=== PATIENT | male | born 1985 | race Caucasian/White ===

== ENCOUNTER 2016-07-23 22:37 | Emergency (ER) | payer BC, MEDICAID ==
--- NOTE | 2016-07-23 22:40 | EDM.PDOC ---
ED HPI GENERAL MEDICAL PROBLEM - General Chief Complaint: Upper Extremity Injury/Pain Stated Complaint: Hand pain Time Seen by Provider: 07/23/16 22:40 Source of Information: Reports: Patient, Old Records ([facility] EMR. No paper hospital chart available.), Significant Other, Other History Limitations: Reports: No Limitations - History of Present Illness INITIAL COMMENTS - FREE TEXT/NARRATIVE: The patient was brought to the emergency room via private automobile for evaluation of 8/10 left-sided hand pain secondary to hitting a dresser at home out of anger about 3 days ago. He has used excessive amounts of ibuprofen since that time, including as much as 800 mg of ibuprofen on a every 4 hours basis with last dose at 18:00 hours this evening. No recent history of abdominal pain , heartburn, nausea, diarrhea, melena, gross hematochezia, or any food intolerance, including fatty foods, etc.. The patient also denies any recent fever, cough, wheezing, dyspnea, etc.. He has not injured this hand in the past. The patient is right handed. He denies any paresthesias, neurological deficits, or other complaints or injuries Onset: Sudden Onset Date: 07/20/16 Onset Time: 12:00 Duration: Constant Location: Reports: Upper Extremity, Left. Denies: Head, Face, Neck, Chest, Abdomen, Back, Pelvis, Radiates to Quality: Reports: Same as Previous Episode, Sharp Severity: Moderate Improves with: Reports: Rest Worsens with: Reports: Movement Context: Reports: Trauma (As above) Associated Symptoms: Denies: Confusion, Chest Pain, Cough, Diaphoresis, Fever/ Chills, Nausea/Vomiting, Shortness of Breath, Weakness Treatments HEAD OF BIOLOGY: Reports: Cold Therapy, NSAIDS Left Hand Pain Score (Numeric/FACES): 8 - Related Data Allergies Allergy/AdvReac Type Severity Reaction Status Date / Time No Known Allergies Allergy Verified 02/15/15 14:19 Past Medical History HEENT History: Reports: Impaired Vision, Other (See Below). Denies: Allergic Rhinitis, Glaucoma, Hard of Hearing, Macular Degeneration, Retinal Detachment Other HEENT History: Glasses Cardiovascular History: Reports: None. Denies: Arrhythmia, Blood Clots/VTE/DVT , Heart Murmur, High Cholesterol, Hypertension, Syncope Respiratory History: Reports: Asthma. Denies: COPD, PE Gastrointestinal History: Reports: None. Denies: Chronic Constipation, Chronic Diarrhea, Gastritis, GERD, Hepatitis, Pancreatitis, PUD Genitourinary History: Reports: None. Denies: Chronic Renal Insuffiency, Renal Calculus, STD, UTI, Recurrent Musculoskeletal History: Reports: Fracture, Other (See Below). Denies: Back Pain, Chronic, Gout, Neck Pain, Chronic, Osteoarthritis, RA, SLE Other Musculoskeletal History: Right wrist fracture at age 18 Neurological History: Reports: Migraines. Denies: Concussion, Head Trauma, MS, Neuropathy, Peripheral, Seizure, Vertigo Psychiatric History: Reports: Addiction, Other (See Below). Denies: Anxiety, Depression Other Psychiatric History: Tobacco and illicit drug use Endocrine/Metabolic History: Reports: None. Denies: Diabetes, Type I, Diabetes , Type II, Hypothyroidism, IDDM Hematologic History: Reports: None. Denies: Anemia, Blood Transfusion(s), Iron Deficiency Immunologic History: Reports: None. Denies: AIDS, HIV, SLE Oncologic (Cancer) History: Reports: None. Denies: Hodgkin's Lymphoma, Leukemia , Lymphoma, Malignant Melanoma, Non-Hodgkin's Lymphoma, Squamous Cell Carcinoma Dermatologic History: Reports: None. Denies: Eczema, Psoriasis - Infectious Disease History Infectious Disease History: Reports: Chicken Pox, Mononucleosis (Early 20s). Denies: C-Difficile, Measles, Meningitis, MRSA, Mumps, Pertussis (Whooping Cough ), Rheumatic Fever, Rubella, Scarlet Fever, Shingles, TB - Past Surgical History Head Surgeries/Procedures: Reports: None HEENT Surgical History: Reports: Adenoidectomy, Oral Surgery, Tonsillectomy, Other (See Below). Denies: Eye Surgery, Laser Surgery, LASIK, Myringotomy w Tube(s), Naso-Sinus Surgery Other HEENT Surgeries/Procedures: Tonsillectomy and adenoidectomy as a child, multiple teeth extractions Cardiovascular Surgical History: Reports: None. Denies: Varicose, Vascular Surgery Respiratory Surgical History: Reports: None. Denies: Lung Biopsies, Thoracentesis GI Surgical History: Reports: None. Denies: Appendectomy, Cholecystectomy, Colonoscopy, EGD, Hernia, Abdominal, Hernia, Inguinal, Hernia Repair/Other Male Surgical History: Reports: Circumcision, Other (See Below). Denies: Vasectomy Other Male Surgeries/Procedures: Circumcision as an Endocrine Surgical History: Reports: None. Denies: Thyroid Biopsy Neurological Surgical History: Reports: None. Denies: C-Spine, Discectomy, Laminectomy, Lumbar Spine, Spinal Fusion, Vertebroplasty Musculoskeletal Surgical History: Reports: Arthroscopic Knee, Arthroscopic Procedure, ORIF, Other (See Below) Other Musculoskeletal Surgeries/Procedures:: Right knee ACL repair at age 16, ORIF and bone graft of right wrist at about age 18 Oncologic Surgical History: Reports: None Dermatological Surgical History: Reports: None - Past Imaging History Past Imaging History: Reports: None Social & Family History - Tobacco Use Smoking Status *Q: Current Every Day Smoker Tobacco Use Within Last Twelve Months: Cigarettes Years of Tobacco use: 16 (Started smoking and using tobacco at age 14) Packs/Tins Daily: 0.5 (Maximum use of 3 packs per day also chewing tobacco of one half can per day previously with current use of one half can per week) Used Tobacco, but Quit: No Smoking Cessation Information Provided To Patient: Yes Second Hand Smoke Exposure: Yes Source of Second Hand Smoke Exposure: Significant other Second Hand Smoke Education Provided: Yes - Caffeine Use Caffeine Use: Reports: Energy Drinks (1 can per week), Soda (12 Sodas per day). 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 ED EXAM, GENERAL - Physical Exam Exam: See Below Exam Limited By: No Limitations General Appearance: Alert, WD/WN, No Apparent Distress, Anxious (Mild) Head: Atraumatic, Normocephalic. No: Facial Swelling, Facial Tenderness, Sinus Tenderness Neck: Normal Inspection, Supple, Non-Tender, Full Range of Motion. No: Lymphadenopathy (L), Lymphadenopathy (R), Thyromegaly Respiratory/Chest: No Respiratory Distress, Lungs Clear, Normal Breath Sounds, No Accessory Muscle Use, Chest Non-Tender. No: Pleural Rub, Retractions Cardiovascular: Normal Peripheral Pulses, Regular Rate, Rhythm, No Edema, No Gallop, No JVD, No Murmur, No Rub. No: Gallop/S3, Gallop/S4, Friction Rub Peripheral Pulses: 4+: Radial (L), Radial (R) GI/Abdominal: Normal Bowel Sounds, Soft, Non-Tender, No Organomegaly, No Distention, No Abnormal Bruit, No Mass, Pelvis Stable. No: Guarding (Male) Exam: Deferred Rectal (Males) Exam: Deferred Back Exam: Normal Inspection, Full Range of Motion. No: CVA Tenderness (L), CVA Tenderness (R), Muscle Spasm Extremities: Normal Range of Motion, No Pedal Edema, Normal Capillary Refill, Other (Mild localized palpation pain without significant swelling, deformity, etc. over the knuckles of his left hand). No: Joint Swelling, Arm Pain, Limited Range of Motion, Redness Neurological: Alert, Oriented, CN II-XII Intact, Normal Cognition, Normal Gait, No Motor/Sensory Deficits Psychiatric: Anxious (Mild), Depressed Mood (Mild) Skin Exam: Warm, Dry, Intact, Normal Color, No Rash, Tattoo(s). No: Diaphoretic , Ecchymosis, Wound/Incision Lymphatic: No Adenopathy Course - Vital Signs Last Recorded V/S: Last Vital Signs Temp 36.8 C 07/23/16 22:43 Pulse 126 H 07/23/16 22:43 Resp 18 07/23/16 22:43 BP 120/67 07/23/16 22:43 Pulse Ox 99 07/23/16 22:43 Vital Signs - 24 hr 07/23/16 22:43 Temperature [ 36.8 C Temporal] Pulse, 126 H Peripheral [ Pulse Oximetry] Respiratory 18 Rate Blood Pressure 120/67 [Right Upper Arm] O2 Sat by Pulse 99 Oximetry - Orders/Labs/Meds Orders: Active Orders 24 hr Category Date Time Status Hand Comp Min 3V Lt [CR] Stat Exams 07/23/16 22:41 Taken Obtain Past Medical Record [OM.PC] Routine Oth 07/23/16 22:41 Active Labs: None Meds: None - Radiology Interpretation Free Text/Narrative:: X-rays of the left hand, 3 views, shows no evidence of fracture or dislocation Departure - Departure Time of Disposition: 23:25 Disposition: Home, Self-Care 01 Condition: good Clinical Impression: Illicit drug use, continuous, Caries, Tobacco abuse counseling Contusion Qualifiers: Encounter type: initial encounter Contusion area: hand Laterality: left Qualified Code(s): S60.222A - Contusion of left hand, initial encounter Asthma Qualifiers: Asthma severity: mild intermittent Asthma complication type: uncomplicated Qualified Code(s): J45.20 - Mild intermittent asthma, uncomplicated - Discharge Information Instructions: Contusion, [id number] Forms: ED Department Discharge Additional Instructions: 1. Follow up with your regular provider in 10-14 days as needed, if symptoms persist. 2. Tylenol 650 mg by mouth every 4 hours and/or OTC ibuprofen 2-3 tabs by mouth every 6 hours with food as directed./needed. 3. BenGay or equivalent, heating pad, and/or ice packs as directed. 4. Stop all tobacco use ADAMA as directed/per provided information and consider contacting [facility]uit [facility], etc.. 5. Congratulations about trying to stop marijuana use for this to be discontinued on a long-term basis as discussed 6. Stop all energy drink use 7. Follow up with your dentist ADAMA as discussed 8. NEVER EXCEED THE RECOMMENDED DOSE OF MEDICINES, INCLUDING OTC MEDICINES, ETC. - Problem List & Annotations (1) Contusion SNOMED Code(s): 188984918 Code(s): T14.8 - OTHER INJURY OF UNSPECIFIED BODY REGION Status: Acute Priority: High Current Visit: Yes Onset Date: 07/20/16 Annotation/Comment: : Mild to moderate contusion of his left hand. Symptomatic relief as per discharge instructions Qualifiers: Encounter type: initial encounter Contusion area: hand Laterality: left Qualified Code(s): S60.222A - Contusion of left hand, initial encounter (2) Asthma SNOMED Code(s): 444434373 Code(s): J45.909 - UNSPECIFIED ASTHMA, UNCOMPLICATED Status: Chronic Priority: Medium Current Visit: Yes Annotation/Comment:: No recent fever or bronchitic type symptoms with no inhaler, etc. therapy required Qualifiers: Asthma severity: mild intermittent Asthma complication type: uncomplicated Qualified Code(s): J45.20 - Mild intermittent asthma, uncomplicated (3) Caries SNOMED Code(s): 99078143 Code(s): K02.9 - DENTAL CARIES, UNSPECIFIED Status: Chronic Priority: Medium Current Visit: Yes Onset Date: 12/08/14 Annotation/Comment:: Followup with dentist ADAMA once again advised with patient once again counseled on health issues of dental disease. Long history of poor dentition, including at time of last ER visit in this facility on 02/15/15 (4) Illicit drug use, continuous SNOMED Code(s): 106828672 Code(s): F19.90 - OTHER PSYCHOACTIVE SUBSTANCE USE, UNSPECIFIED, UNCOMPLICATED Status: Chronic Priority: Medium Current Visit: Yes Annotation/Comment:: Patient congratulated about trying to discontinue use of marijuana. (5) Tobacco abuse counseling SNOMED Code(s): 148666334, 060294105, 726744607 Code(s): Z71.6 - TOBACCO ABUSE COUNSELING Status: Chronic Priority: Medium Current Visit: Yes Annotation/Comment:: Tobacco cessation once again strongly advised with information provided. Patient counseled on the use of Nicorette gum previously - Problem List Review Problem List Initiated/Reviewed/Updated: Yes - My Orders Last 24 Hours: My Active Orders 07/23/16 22:41 Hand Comp Min 3V Lt [CR] Stat Obtain Past Medical Record [OM.PC] Routine - Assessment/Plan Last 24 Hours: My Active Orders 07/23/16 22:41 Hand Comp Min 3V Lt [CR] Stat Obtain Past Medical Record [OM.PC] Routine Assessment:: As above Plan: As above. Extensive precautions were given to the patient and his significant other, who are in agreement with the treatment plan. See Patient Instructions for further treatment and plan.
[2016-07-23 22:45] VITALS: BP 120/67
== END 2016-07-23 23:25 | disposition home or self-care (01) ==
LOC: LL.ED 22:37
DX: S60.222A Contusion of left hand, initial encounter (principal); J45.20 Mild intermittent asthma, uncomplicated; H54.7 Unspecified visual loss; G43.909 Migraine, unspecified, not intractable, without status migrainosus; F17.210 Nicotine dependence, cigarettes, uncomplicated; K02.9 Dental caries, unspecified; F19.90 Other psychoactive substance use, unspecified, uncomplicated; Z98.890 Other specified postprocedural states; Z71.6 Tobacco abuse counseling; W22.8XXA Striking against or struck by other objects, initial encounter
CPT/HCPCS: 73130-LT; 99283